=== PATIENT | female | born 1990 | race American Indian/Alaskan Native ===

== ENCOUNTER 2020-03-15 13:29 | Emergency (ER) | payer SELFPAY ==
[2020-03-15 13:46] VITALS: BP 118/77
--- NOTE | 2020-03-15 14:19 | Emergency Department Report ---
[facility] Chief Complaint: Eye Problems Stated Complaint: RT EYE RED/DISCOMFORT Time Seen by Provider: 03/15/20 13:50 Duration: 2 Days Side: Right Severity: moderate Symptoms: Yes Eye Redness, Yes Eye Pain, No Eye Itching, No Mucous Drainage, No Purulent Drainage, No Blurred Vision, No Preceding URI, No H/O Allergic Rhinitis, No Contact Lens Use, No Trauma, No Fever, No Headache Other History: This is a 29-year-old female presents the ED complaining of right eye redness and irritation for the past 2 days. Patient states she was outside and thinks she got some pollen in the eye while she was outside 2 days ago. Patient states she is tried cold compress and artificial teardrops with no relief. Patient states that she has had no foreign object in the eye or feeli ngs of foreign objects in the eye. She denies vision loss or blurry vision. Patient states all vaccines are up-to-date ED Review of Systems ROS: Stated complaint: RT EYE RED/DISCOMFORT Other details as noted in HPI Comment: All other systems reviewed and negative ED Past Medical Hx - Past Medical History Hx Asthma: Yes - Surgical History Past Surgical History?: No - Social History Smoking Status: Never Smoker Substance Use Type: None - Medications Home Medications: Home Medications Medication Instructions Recorded Confirmed Last Taken Type Tetrahydrz/Dext 70/Peg 400/Pvp 1 applic OP BID #1 bottle 03/15/20 Unknown Rx [Eye Drops Advanced Relief] Tobramycin 0.3% [Tobrex] 1 drop OP Q8HR #1 bottle 03/15/20 Unknown Rx [facility] Exam - Exam General: Vital signs noted. No distress. Alert and acting appropriately. Eye Exam: Right Injection, Neither Chemosis, Neither Abnormal Pupil, Neither EOMI, Neither Eye Foreign Body, Neither Lid Foreign Body, Neither Mucous Discharge, Neither Purulent Discharge HEENT: No Nasal Congestion, No Pharyngeal Erythema Remainder of HEENT: Normal Lungs: Yes Clear Lung Sounds, Yes Good Air Exchange, No Wheezes, No Stridor, No Cough, No Nasal Flaring, No Retractions, No Use of Accessory Muscles Exam: EOMI intact, nontender to palpation bilateral eyes, no orbital swelling. Vision intact bilaterally ED Course Vital Signs 03/15/20 13:43 Temperature 98.3 F Pulse Rate 92 H Respiratory 18 Rate Blood Pressure 118/77 O2 Sat by Pulse 98 Oximetry ED Medical Decision Making - Medical Decision Making 29-year-old female presents with left eye conjunctivitis ED course: no corneal abrasion. discussed this with the patient. 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 I discussed the patient is new or worsening symptoms to return to ED immediately Patient's vital signs are stable he's in no distress. Patient is vision is intact, visual acuity test performed, within normal limits. Discussed the patient to follow up with her primary care physician in 3-5 days. Critical care attestation.: If time is entered above; I have spent that time in minutes in the direct care of this critically ill patient, excluding procedure time. ED Disposition Clinical Impression: Acute conjunctivitis, right eye Disposition: [id number] TO HOME OR SELFCARE Is pt being admited?: No Does the pt Need Aspirin: No Condition: Stable Instructions: Conjunctivitis (ED) Additional Instructions: Make sure to follow up with the primary care physician as discussed. Take all your medications as you've been prescribed. If you have any worsening symptoms or develop new symptoms please return to ED immediately. Prescriptions: Tetrahydrz/Dext 70/Peg 400/Pvp [Eye Drops Advanced Relief] 1 applic OP BID #1 bottle Tobramycin 0.3% [Tobrex] 1 drop OP Q8HR #1 bottle Referrals: [facility] [Outside] - 3-5 Days [facility] [Outside] - 3-5 Days Forms: Work/School Release Form(ED) Time of Disposition: 14:20
== END 2020-03-15 13:50 | disposition home or self-care (01) ==
LOC: ED 13:29
DX: H10.31 Unspecified acute conjunctivitis, right eye (principal); J45.909 Unspecified asthma, uncomplicated; Z79.899 Other long term (current) drug therapy
CPT/HCPCS: 99282